=== PATIENT | male | born 1945 | race Caucasian/White ===

== ENCOUNTER → 2016-09-07 | Outpatient (CLI) | payer MEDICARE, OTHER ==
[2015-12-31 14:28] VITALS: BP 184/84
[~2016-09-07] MED LIST: ASPI-482 PO; ASPI325T4 PO; ASPI81TA2 PO; CALC600T4 PO; CARB1TAB44 PO; CITA20TA9 PO; CITA40TA5 PO; CLOP75TA27 PO; FEXO60TA25 PO; GABA-586 PO; GABA600T2 PO; GADOBUTROL 7.5 MMOL/7.5 ML VIAL IV ONE; HALO5TAB PO; HYDR-2762 PO; LEVO25TA4 PO; METO25TA9 PO; MULT-460 PO; NAPR220C4 PO; NITR0.4T6 SL; OMEP40CA5 PO; RANO500T2 PO; SIMV40TA3 PO; TAMS0.4C2 PO; VITA400C36 PO
--- NOTE | 2016-09-07 14:22 | RAD ---
PROCEDURE MRI cervical spine without and with contrast. HISTORY Increasing neck pain and right arm weakness for 3 weeks, previous neck fusion TECHNIQUE Multiplanar, multi sequential pre and post contrast MR imaging was performed of the cervical spine. Contrast: 7.5 cc Gadavist COMPARISON February 09, 2016 FINDINGS There is some motion degradation. There again has been anterior cervical fusion at C3, C4, C5. Exam does not accurately evaluate integrity of hardware. Cervical cord caliber is within normal limits without significant focal signal abnormality or enhancement. There is no significant marrow edema. Cervical vertebral body stature and AP alignment are preserved. There is no significant abnormality of the cervical medullary junction. There is mild cervical levoscoliosis. C2-C3: Spinal canal is adequate. There is again shallow posterior central protrusion. Neural foramina remain adequate. C3-C4: There is again facet hypertrophic change. Central canal is again minimally narrowed to 9-10 millimeters. Neural foramina are not significantly narrowed. C4-C5: Spinal canal is adequate. There are uncovertebral osteophytes. There is mild facet hypertrophic change. Neural foramina are not significantly narrowed. C5-C6: There is again negligible bulge. There is buckling of the ligamentum flavum. Central canal is borderline 10 millimeters. There is facet degenerative change. There is likely mild narrowing of the right neural foramen as seen previously. C6-7: There is again buckling of the ligamentum flavum and minimal posterior bulge. Central canal is borderline 10 millimeters. Neural foramina are not significantly narrowed. C7-T1: Spinal canal and neural foramina remain adequate. IMPRESSION Findings are similar comparing with the February 2016 exam. There again has been anterior cervical fusion C3, C4, C5. There is no new significant cervical spinal stenosis or neural foramina compromise, similar mild spinal stenosis C3-4. Electronically signed by: Andrea Rollins MD (Sep 07, 2016 14:20:43)
== END | disposition home or self-care (01) ==
LOC: MRI 12:08
PROVIDERS: ATTEND Family Medicine
DX: M50.90 Cervical disc disorder, unspecified, unspecified cervical region (principal)
CPT/HCPCS: 72156; A9585

== ENCOUNTER → 2016-09-29 | Outpatient (CLI) | payer MEDICARE, OTHER ==
[2015-12-31 14:28] VITALS: BP 184/84
[~2016-09-29] MED LIST changes: -GADOBUTROL 7.5 MMOL/7.5 ML VIAL IV ONE; +IOHEXOL 180 MG/ML 10 ML VIAL. ONE; +RANO10002 PO; +methylPREDNISolone ACETATE 40 MG/ML VIAL. ONE; +methylPREDNISolone ACETATE 80 MG/ML VIAL. ONE
--- NOTE | 2016-09-29 12:07 | PAIN ---
DATE OF SERVICE: 09/29/2016 DIAGNOSES: 1. Cervical radiculopathy with cervical stenosis and post-cervical laminectomy syndrome. 2. Lumbar radiculopathy with post-lumbar laminectomy syndrome. HISTORY OF PRESENT ILLNESS: The patient is a 71-year-old male who returns for followup, last seen in 07/2015. The patient had undergone surgery in 08/2015, cervical anterior diskectomy and fusion. The patient did well after this, but still has some pain in the base of the neck and into the right shoulder and upper extremity. The patient reports it is worse with activity using his upper extremities, his right arm, also into the anterior chest as well on the right side. Aches and hurts with rotational motion of the shoulder and neck. It is 5-7 on a scale of 10, is a constant aching pain, probably some weakness sensation in his right arm. The patient did have MRI scan showing multilevel degenerative disk disease throughout the cervical spine with severe right neural foraminal stenosis at C3-C4, moderate bilateral neural foraminal stenosis at C4-C5 with other less severe degenerative changes in C5-C6 and C6-C7 levels. The patient reports no symptoms on the left arm, but significant pain in the right, it has been awakening her from sleep at night and has difficulty getting dressed raising his arm up over his head on the right side, but without dropping any items or overt loss of function in the right upper extremity. PAST MEDICAL HISTORY: Significant for hyperlipidemia, coronary artery disease, depression, anxiety. PREVIOUS SURGERY: Include hernia repair, lumbar surgery in 1990, cholecystectomy, right hip replacement, cardiac stent placement and anterior cervical diskectomy in 08/2015. CURRENT MEDICATIONS: Include gabapentin, omeprazole, multivitamin, Celexa, carbidopa, metoprolol, daily baby aspirin, vitamin E, simvastatin, tamsulosin, hydrocodone and levothyroxine. ALLERGIES: THE PATIENT HAS NO KNOWN DRUG ALLERGIES. FAMILY HISTORY: Significant for hypertension. SOCIAL HISTORY: The patient is retired. He is and lives with his spouse, does not smoke, quit drinking in 1990. REVIEW OF SYSTEMS: The patient's review of systems is positive for those items mentioned in history of present illness. All systems reviewed and otherwise negative. It is complete, full and well documented on the patient's chart. PHYSICAL EXAMINATION: VITAL SIGNS: The patient's blood pressure is 115/44, pulse 58, respirations are 18, temperature 98.4 degrees Fahrenheit. Height is 5 feet 6 inches, weight is 168 pounds. GENERAL: The patient is awake, alert, oriented, appropriate, very pleasant demeanor. HEENT: Head shows normocephalic, atraumatic. Extraocular movements are intact, symmetrical. Oral cavity, mucous membranes are moist and pink. Dentition is intact. NECK: Shows anterior throat supple without palpable lymphadenopathy noted. Swallow reflex is symmetrical. CHEST: Shows normal on inspection. Breath sounds are clear to auscultation bilaterally. HEART: Shows S1 and S2 clear. No murmurs auscultated. ABDOMEN: Soft, nontender, nondistended. No palpable organomegaly. No rebound or guarding demonstrated. BACK: Shows spine grossly midline. Cervical paraspinous musculature shows some [id number]-[id number] tenderness in the inferior aspect of the cervical paraspinous muscles, more on the right than the left, but present bilaterally, but is symmetrical without evidence of atrophy, hypertrophy, no trigger points, and no radiation of pain. The patient shows good rotational motion with some minor pain reported with extension only, but not with forward flexion, right and left. Lateral rotation which is performed fully past 45 degrees, closer to 90 degrees, right and left. Upper extremities show deep tendon reflexes at 2+ in the biceps and triceps tendons. 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 Shoulder shrug is strong and intact without loss of strength and resistance bilaterally as is abduction of shoulder is 90 degrees without loss of strength or resistance. Peripheral pulses are 2+ in radial distribution. No peripheral edema is noted. Upper extremities are warm and dry to touch, equal in color and appearance. Options were discussed with the patient and the patient's old chart was reviewed as his current medication regimen and updated and current review of systems updated as noted. We will plan on a cervical epidural steroid injection today with fluoroscopic guidance. Risks were again discussed including, but not limited to bleeding, infection, possibility of epidural hematoma, subsequent neurologic compromise, dural puncture, headaches, spinal cord and/or nerve damage, side effects of steroid medication and poor results regarding pain control. The patient understands and wishes to proceed. The patient will return to clinic in approximately 2 weeks for followup, was counseled on return appointment, activity level and side effects to be aware of. DIAGNOSES: Cervical radiculopathy with cervical post-laminectomy syndrome and cervical spinal stenosis. PROCEDURE: Cervical epidural steroid injection in translaminar approach at the C6-C7 level, using C-arm fluoroscopic guidance under sterile prep and drape using local anesthetic. Medication injected is 120 mg Depo-Medrol plus 5 mL preservative-free normal saline and 2 mL of Isovue contrast. CONDITION ON DISCHARGE: Stable. The patient tolerated procedure well, had no complications. FLIP ANDERSON MD DR: PASHA/darius JOB#: [id number] / [id number]
== END | disposition home or self-care (01) ==
LOC: PNCL 08:00
PROVIDERS: ATTEND Anesthesiology
DX: M48.02 Spinal stenosis, cervical region (principal); M96.1 Postlaminectomy syndrome, not elsewhere classified; M54.12 Radiculopathy, cervical region; E78.5 Hyperlipidemia, unspecified; F41.9 Anxiety disorder, unspecified; F32.9 Major depressive disorder, single episode, unspecified; I25.10 Atherosclerotic heart disease of native coronary artery without angina pectoris; Z90.49 Acquired absence of other specified parts of digestive tract; Z96.641 Presence of right artificial hip joint
CPT/HCPCS: 62321; J1030; J1040; 62323

== ENCOUNTER → 2016-10-21 | Outpatient (CLI) | payer MEDICARE, OTHER ==
[2015-12-31 14:28] VITALS: BP 184/84
--- NOTE | 2016-10-22 06:32 | PAIN ---
DATE OF SERVICE: 10/21/2016 PROGRESS NOTE FOR PAIN CLINIC DIAGNOSES: 1. Cervical radiculopathy with cervical spinal stenosis and cervical post-laminectomy syndrome. 2. Lumbar radiculopathy with post-lumbar laminectomy syndrome. HISTORY OF PRESENT ILLNESS: The patient is a 71-year-old male who returns for followup status post cervical epidural steroid injection x 1 on 09/29/2016. The patient reports he did very well with this. Initially, about 50% improvement, now about 30% and the pain is beginning to return. The patient reports still in the base of the neck and shoulders, worse on the right than the left, also causes some headache as a constant aching pain and it is tight, dull at times, rated up to 5 on a scale of 10 when it worse and it is currently at 2 on a scale of 10 today. The patient reports no new motor or sensory deficits, no new visual disturbances or other changes with these headaches and reports otherwise, doing well. There is still significant pain in the base of the neck, shoulders, right greater than left as noted. PHYSICAL EXAMINATION: VITAL SIGNS: Today, the patient's blood pressure is 107/66, pulse ____, respirations 18, temperature is ____ degrees Fahrenheit, height is 5 feet 6 inches, and weight is 169 pounds. GENERAL: The patient is awake, alert, oriented, appropriate, very pleasant demeanor. HEENT: Head shows normocephalic, atraumatic. Extraocular movements are intact, symmetrical. Oral cavity, mucous membranes are moist and pink. Dentition is intact. NECK: Shows anterior throat is supple without palpable lymphadenopathy noted. Swallow reflex is symmetrical. CHEST: Shows normal on inspection. Breath sounds are clear to auscultation bilaterally. HEART: Shows S1 and S2 clear. ABDOMEN: Soft, nontender, nondistended. No palpable organomegaly is noted. BACK: Shows spine grossly in the midline. Cervical paraspinous musculature shows some moderate tenderness with palpation bilaterally in the middle and lower distribution of the cervical paraspinous musculature, but only diffusely without radiation or trigger points. The patient shows some limited extension of cervical spine, but good forward flexion, right and left lateral rotation is guarded and slow but past 45 degrees, right and left lateral. EXTREMITIES: The patient's upper extremities show deep tendon reflexes 2+ in the biceps, triceps tendons. 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 PLAN: Options were discussed with the patient and the patient's old chart was reviewed and his current medication regimen updated. Current review of systems updated today as well. We will proceed with a second cervical epidural steroid injection today with fluoroscopic guidance. Risks were again discussed including, but not limited to bleeding, infection, possibility of epidural hematoma, subsequent neurological compromise, dural puncture, headaches, spinal cord and/or nerve damage, side effects of steroid medication and poor results regarding pain control. The patient understands and wishes to proceed. The patient will return to the clinic in approximately 2 weeks for followup. He was counseled to return appointment, activity level and side effects to be aware of. DIAGNOSES: Cervical radiculopathy with cervical spinal stenosis and post-cervical laminectomy syndrome. PROCEDURE: Cervical epidural steroid injection using C-arm fluoroscopic guidance under sterile prep and drape using local anesthetic at the C6-C7 level in translaminar approach. MEDICATIONS INJECTED: A 120 mg of Depo-Medrol plus 5 mL of preservative-free normal saline and 2 mL of Isovue for contrast. CONDITION AT DISCHARGE: Stable. The patient tolerated procedure well, had no complications. FLIP ANDERSON MD DR: PASHA/darius JOB#: [id number] / [id number]
== END | disposition home or self-care (01) ==
LOC: PNCL 11:14
PROVIDERS: ATTEND Anesthesiology
DX: M48.02 Spinal stenosis, cervical region (principal); M96.1 Postlaminectomy syndrome, not elsewhere classified; M54.12 Radiculopathy, cervical region; E78.00 Pure hypercholesterolemia, unspecified; J44.9 Chronic obstructive pulmonary disease, unspecified; F32.9 Major depressive disorder, single episode, unspecified; E05.90 Thyrotoxicosis, unspecified without thyrotoxic crisis or storm; Z90.49 Acquired absence of other specified parts of digestive tract; Z96.641 Presence of right artificial hip joint; Z72.0 Tobacco use; Z87.891 Personal history of nicotine dependence
CPT/HCPCS: 62321; J1030; J1040

== ENCOUNTER → 2016-11-07 | Outpatient (CLI) | payer MEDICARE, OTHER ==
[2015-12-31 14:28] VITALS: BP 184/84
--- NOTE | 2016-11-07 19:36 | PAIN ---
DATE OF SERVICE: 11/07/2016 PROGRESS NOTE FOR PAIN CLINIC DIAGNOSES: 1. Cervical radiculopathy with cervical spinal stenosis and post-cervical laminectomy syndrome. 2. Lumbar radiculopathy with post-lumbar laminectomy syndrome. HISTORY OF PRESENT ILLNESS: The patient is a 71-year-old male, who returns for followup status post cervical epidural steroid injections x 2, last seen 10/21/2016. The patient did very well and reports near 100% improvement after the last injection. The pain in the base of the neck and shoulders, was feeling much better, increase his activity with greater ease and comfort and sleeping better at night. No difficulty with the pain with sleeping. The patient reports it is worst as a 4 on a scale of 10, describes as dull achy, occasionally constant, but much better after the last injection. The patient reports no new motor or sensory deficits, no new bowel or bladder incontinence or other complaints. PHYSICAL EXAMINATION: VITAL SIGNS: The patient's blood pressure 109/72, pulse 63, respirations are 16, temperature 98.0 degrees Fahrenheit. Height is 5 feet 6 inches, weight is 165 pounds. GENERAL: The patient is awake, alert, oriented, appropriate, very pleasant demeanor. HEENT: Head shows normocephalic, atraumatic. Extraocular movements are intact and symmetrical. Oral cavity shows mucous membranes are moist and pink. Dentition is intact. NECK: Shows anterior throat supple without palpable lymphadenopathy noted. Swallow reflex is symmetrical. CHEST: Shows normal on inspection. Breath sounds clear to auscultation bilaterally. HEART: Shows S1 and S2 clear. ABDOMEN: Soft, nontender, nondistended. No palpable organomegaly. No rebound or guarding demonstrated. BACK: Shows spine grossly midline. Well-healed surgical scar is noted in the lumbar distribution. Cervical lordotic curvature is mildly flattened had on previous exam with palpation shows some moderate tenderness with palpation bilaterally in the cervical paraspinous musculature, mainly in the middle and lower distribution, also superior medial and lateral trapezius some extent, but without radiation. The patient shows good rotational motion, mildly limited secondary to limitation of motion, but not secondary to pain with extension, also with right and left lateral rotation, but patient ____ 45 degrees bilaterally. EXTREMITIES: The patient's upper extremities show deep tendon reflexes 2+ in the biceps and triceps tendons. 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 Options were discussed with the patient. The patient's old chart was reviewed as his current medication regimen updated. Current review of systems updated today as well. We will proceed with a third cervical epidural steroid injection today with fluoroscopic guidance. Risks were again discussed including, but not limited to bleeding, infection, possibility of epidural hematoma, subsequent neurologic compromise, dural puncture, headaches, spinal cord and/or nerve damage, side effects of steroid medication and poor results regarding pain control. The patient understands and wishes to proceed. The patient will return to clinic in approximately 2 weeks for followup, was counseled on return appointment, activity level and side effects to be aware of. DIAGNOSES: Cervical radiculopathy with cervical spinal stenosis, cervical post-laminectomy syndrome. PROCEDURE: Cervical epidural steroid injection in translaminar approach to the C6-C7 level using C-arm fluoroscopic guidance under sterile prep and drape using local anesthetic. MEDICATIONS INJECTED: Depo-Medrol 120 mg plus 5 mL of preservative-free normal saline and 2 mL of Isovue for contrast. CONDITION AT DISCHARGE: Stable. The patient tolerated procedure well, had no complications. FLIP ANDERSON MD DR: PASHA/darius JOB#: [id number] / [id number]
== END | disposition home or self-care (01) ==
LOC: PNCL 08:54
PROVIDERS: ATTEND Anesthesiology
DX: M48.02 Spinal stenosis, cervical region (principal); M54.12 Radiculopathy, cervical region; M96.1 Postlaminectomy syndrome, not elsewhere classified; E78.00 Pure hypercholesterolemia, unspecified; I25.10 Atherosclerotic heart disease of native coronary artery without angina pectoris; J44.9 Chronic obstructive pulmonary disease, unspecified; F32.9 Major depressive disorder, single episode, unspecified; K21.9 Gastro-esophageal reflux disease without esophagitis; Z72.89 Other problems related to lifestyle; Z72.0 Tobacco use; Z96.641 Presence of right artificial hip joint
CPT/HCPCS: 62321; J1030; J1040

== ENCOUNTER → 2017-01-18 | Outpatient (CLI) | payer MEDICARE, OTHER ==
[2015-12-31 14:28] VITALS: BP 184/84
[~2017-01-18] MED LIST changes: +ASPI-630 PO; -ASPI325T4 PO; +ASPI325T8 PO; -ASPI81TA2 PO; -CLOP75TA27 PO; +CLOP75TA57 PO; -IOHEXOL 180 MG/ML 10 ML VIAL. ONE; +NITR0.4T22 SL; -NITR0.4T6 SL; -methylPREDNISolone ACETATE 40 MG/ML VIAL. ONE; -methylPREDNISolone ACETATE 80 MG/ML VIAL. ONE
--- NOTE | 2017-01-25 17:39 | RAD ---
APPROVED REPORT Patient Location: OUT-PATIENT Laterality:Bilateral Indications pvd Doppler Spectral Velocity Analysis Right Left pCCA 69/15 cm/spCCA 98/23 cm/s mCCA 93/19 cm/smCCA 114/31 cm/s dCCA 71/18 cm/sdCCA 121/29 cm/s Bulb 32/19 cm/sBulb 41/ cm/s ECA 75/ cm/sECA 125/ cm/s pICA 54/17 cm/spICA 69/19 cm/s Colleen 70/26 cm/smICA 99/27 cm/s dICA 69/28 cm/sdICA 79/26 cm/s Vert. 56/ cm/sVert. 41/ cm/s Subcl. 210/ cm/sSubcl. 100/ cm/s ICA/CCA 0.75ICA/CCA 1.01 Findings The bilateral carotid arterial systems were assess for stenosis. On the right there is mild intimal hyperplasia with mild plaque burden noted throughout the arterial tree. The specrtral waveforms and color doppler assessment is consistent with less than 50% stenosis. The vertebral velocities are antegrade. The subclavian velocity is suggestive of > 50% stenosis. On the left there is mild intimal hyperplasia with mild plaque burden noted throughout the arterial t ree. The specrtral waveforms and color doppler assessment is consistent with less than 50% stenosis. The vertebral velocities are antegrade. The subclavian velocity is within normal limits. Critical Notification Critical Value: No <Conclusion> 1. No high grade stenosis in the bilateral carotid arterial systems. 2. 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
== END | disposition home or self-care (01) ==
LOC: US 09:57
PROVIDERS: ATTEND Internal Medicine Cardiovascular Disease
DX: I73.9 Peripheral vascular disease, unspecified (principal); I65.21 Occlusion and stenosis of right carotid artery
CPT/HCPCS: 93880

== ENCOUNTER → 2017-03-15 | Outpatient (CLI) | payer MEDICARE, OTHER ==
[2015-12-31 14:28] VITALS: BP 184/84
[~2017-03-15] MED LIST changes: +DOCU-109 PO; +METH5TAB2 PO; +METH750T2 PO; +METO-239 PO; -METO25TA9 PO; +NITR0.3T5 SL; +OXYC1TAB7 PO
[2017-03-15 14:27] LABS: BASO # 0.1 x10^3/uL (0.0-0.2); BASO % 1 % (0-3); EOS % 5 % (0-3); HEMATOCRIT 43.2 % (39.0-53.0); HEMOGLOBIN 14.5 g/dL (13.0-17.5); LYMPH # 1.2 x10^3/uL (1.0-4.8); LYMPH % 19 % (24-48); MEAN CORPUSCULAR HEMOGLOBIN 32 pg (25-35); MEAN CORPUSCULAR HGB CONC 34 g/dL (31-37); MEAN CORPUSCULAR VOLUME 94 fL (79-100); MONO % 12 % (0-9); NEUT % 63 % (31-73); PLATELET COUNT 162 x10^3/uL (140-400); RED BLOOD COUNT 4.58 x10^6/uL (4.30-5.70); RED CELL DISTRIBUTION WIDTH 12.9 % (11.5-14.5); WHITE BLOOD COUNT 6.6 x10^3/uL (4.0-11.0)
[2017-03-15 14:40] LABS: ALBUMIN 3.5 g/dL (3.4-5.0); ALBUMIN/GLOBULIN RATIO 1.2 (1.0-1.7); CALCIUM 8.5 mg/dL (8.5-10.1); CREATININE 0.9 mg/dL (0.7-1.3); GFR 82.7; POTASSIUM 3.9 mmol/L (3.5-5.1); TOTAL BILIRUBIN 0.3 mg/dL (0.2-1.0); TOTAL PROTEIN 6.5 g/dL (6.4-8.2)
== END | disposition home or self-care (01) ==
LOC: SURGPAT 13:16
PROVIDERS: ATTEND Neurological Surgery
DX: M54.12 Radiculopathy, cervical region (principal)
CPT/HCPCS: 36415; 80053; 85025; 85610; 85730; 87641

== ENCOUNTER → 2017-07-07 | Outpatient (CLI) | payer MEDICARE, OTHER | END | disposition home or self-care (01) | LOC: RAD 09:08 | DX: M43.22 Fusion of spine, cervical region (principal); Z98.890 Other specified postprocedural states | CPT/HCPCS: 72040 ==

== ENCOUNTER → 2017-08-03 | Outpatient (CLI) | payer MEDICARE, OTHER | END | disposition home or self-care (01) | LOC: KCIC MRI 12:45 | DX: M75.102 Unspecified rotator cuff tear or rupture of left shoulder, not specified as traumatic (principal) | CPT/HCPCS: 73221 ==

== ENCOUNTER 2017-11-27 06:13 | Outpatient (CLI) | payer MEDICARE, OTHER ==
[2017-11-27 07:07] LABS: HEMATOCRIT 44.4 % (39.0-53.0); HEMOGLOBIN 15.4 g/dL (13.0-17.5); MEAN CORPUSCULAR HEMOGLOBIN 32 pg (25-35); MEAN CORPUSCULAR HGB CONC 35 g/dL (31-37); MEAN CORPUSCULAR VOLUME 92 fL (79-100); PLATELET COUNT 186 x10^3/uL (140-400); RED BLOOD COUNT 4.85 x10^6/uL (4.30-5.70); RED CELL DISTRIBUTION WIDTH 13.4 % (11.5-14.5)
[2017-11-27 07:12] LABS: ANION GAP 8 (6-14); BLOOD UREA NITROGEN 16 mg/dL (8-26); CALCIUM 8.8 mg/dL (8.5-10.1); CARBON DIOXIDE 28 mmol/L (21-32); CHLORIDE 105 mmol/L (98-107); CREATININE 0.9 mg/dL (0.7-1.3); GFR 82.7; GLUCOSE 93 mg/dL (70-99); POTASSIUM 3.9 mmol/L (3.5-5.1); SODIUM 141 mmol/L (136-145)
[2017-11-27 07:37] LABS: PROTHROMBIN TIME PATIENT 12.3 SEC (11.7-14.0)
[2017-11-27 07:39] LABS: PARTIAL THROMBOPLASTIN TIME 28 SEC (24-38)
[2017-11-27] MEDS ORDERED: LIDOCAINE 2%/EPI 1:100,000 20 ML VIAL. (07:43)
[2017-11-27] MEDS: LIDOCAINE 2%/EPI 1:100,000 20 ML VIAL. IJ (08:30)
== END 2017-11-27 09:15 | disposition home or self-care (01) ==
LOC: CCL 06:13
DX: R55 Syncope and collapse (principal); M48.02 Spinal stenosis, cervical region; M54.12 Radiculopathy, cervical region; Z86.73 Personal history of transient ischemic attack (TIA), and cerebral infarction without residual deficits; F03.90 Unspecified dementia, unspecified severity, without behavioral disturbance, psychotic disturbance, mood disturbance, and anxiety; G20 Parkinson's disease; I25.10 Atherosclerotic heart disease of native coronary artery without angina pectoris; E03.9 Hypothyroidism, unspecified; E78.00 Pure hypercholesterolemia, unspecified; J44.9 Chronic obstructive pulmonary disease, unspecified; G47.33 Obstructive sleep apnea (adult) (pediatric); K21.9 Gastro-esophageal reflux disease without esophagitis; N40.0 Benign prostatic hyperplasia without lower urinary tract symptoms; I36.1 Nonrheumatic tricuspid (valve) insufficiency; Z95.5 Presence of coronary angioplasty implant and graft; Z98.890 Other specified postprocedural states; Z90.49 Acquired absence of other specified parts of digestive tract; Z96.641 Presence of right artificial hip joint; M16.11 Unilateral primary osteoarthritis, right hip; Z72.89 Other problems related to lifestyle; Z87.891 Personal history of nicotine dependence; Z82.49 Family history of ischemic heart disease and other diseases of the circulatory system
CPT/HCPCS: 33282; 36415; 80048; 85027; 85610; 85730; 93306; C1764; J3490

== ENCOUNTER → 2018-02-12 | Outpatient (CLI) | payer MEDICARE, OTHER ==
[2018-02-12 09:09] LABS: CHOLESTEROL 175 mg/dL (0-200); HDLC 46 mg/dL (40-60); LDLC 97 mg/dL (0-100); NON-HDL CHOLESTEROL 129 mg/dL (0-129); TRIGLYCERIDES 161 mg/dL (0-150); VLDLC 32 mg/dL (0-40)
[2018-02-12 09:24] LABS: CHOLESTEROL/HDL RATIO 3.8
[2018-02-12] MEDS: REGADENOSON 0.4 MG/5 ML DISP.SYRIN. IV (10:25)
== END | disposition home or self-care (01) ==
LOC: NM 08:13
DX: I25.10 Atherosclerotic heart disease of native coronary artery without angina pectoris (principal); I25.2 Old myocardial infarction; I10 Essential (primary) hypertension; E78.5 Hyperlipidemia, unspecified; E78.00 Pure hypercholesterolemia, unspecified; M16.11 Unilateral primary osteoarthritis, right hip; F32.9 Major depressive disorder, single episode, unspecified; E03.9 Hypothyroidism, unspecified; J44.9 Chronic obstructive pulmonary disease, unspecified; E87.6 Hypokalemia; K21.9 Gastro-esophageal reflux disease without esophagitis; Z95.5 Presence of coronary angioplasty implant and graft; Z90.49 Acquired absence of other specified parts of digestive tract; Z82.49 Family history of ischemic heart disease and other diseases of the circulatory system
CPT/HCPCS: 36415; 78452; 80061; 93017; 96374; 96375; 96376; A9500; J2785

== ENCOUNTER → 2018-08-13 | Outpatient (CLI) | payer MEDICARE, OTHER ==
[2017-11-27 08:55] VITALS: BP 152/67
[~2018-08-13] MED LIST changes: +ALBU2.5V8 INH; +CHOL10003 PO; +DULO60CA6 PO; -GABA-586 PO; +GABA300C18 PO; -GABA600T2 PO; +GABA600T7 PO; -HYDR-2762 PO; +HYDR-2765 PO; +LEVO75TA PO; +MECL12.52 PO
--- NOTE | 2018-08-13 11:16 | RAD ---
Chest, PA and Lateral: Technique: PA and lateral views of the chest were obtained. History: Medical workup. Comparison: 11/03/2017. Findings: The heart and pulmonary vasculature appear within normal limits. The lungs are clear.. The pleural margins are clear. Heart monitor device projects in the left chest wall region. Impression: No acute chest process is seen. Electronically signed by: Dedrick Sullivan MD (08/13/2018 11:11 AM) [facility]
== END | disposition home or self-care (01) ==
LOC: RAD 09:24
PROVIDERS: ATTEND Internal Medicine Pulmonary Disease
DX: R05 Cough (principal)
CPT/HCPCS: 71046

== ENCOUNTER → 2018-08-15 | Outpatient (CLI) | payer MEDICARE, OTHER ==
[2017-11-27 08:55] VITALS: BP 152/67
--- NOTE | 2018-08-15 13:16 | KCIC ---
MR of the right shoulder HISTORY: Right shoulder pain chronically. Decreased range of motion. TECHNIQUE: Routine multiplanar sequences are obtained. FINDINGS: The acromioclavicular joint is mildly degenerative. Full-thickness tear of the anterior supraspinatus tendon measures 1 cm AP diameter. Retraction measures 2 cm of the undersurface fibers. There is generalized tendinosis. Undersurface tearing through the more posterior tendon. Partial tearing of the subscapularis tendon. Wnod-os-phlnejdo muscle atrophy. Mild fluid enters subdeltoid bursa. No acute articular cartilage defect. There is limited labral evaluation due to some motion degradation but there is evidence of a tear of the posterosuperior labrum. Biceps tendinosis. No bone lesion or acute fracture. No aggressive bone destruction. No acute soft tissue abnormality. IMPRESSION: 1. Full-thickness rotator cuff tear of the anterior supraspinatus tendon, with more generalized partial rotator cuff tearing. 2. Biceps tendinosis. 3. Small posterosuperior labral tear. Electronically signed by: Manoj Ibrahim MD (08/15/2018 1:11 PM) [facility]
== END | disposition home or self-care (01) ==
LOC: KCIC MRI 11:19
PROVIDERS: ATTEND Orthopaedic Surgery
DX: M75.101 Unspecified rotator cuff tear or rupture of right shoulder, not specified as traumatic (principal); M62.511 Muscle wasting and atrophy, not elsewhere classified, right shoulder; Z87.891 Personal history of nicotine dependence
CPT/HCPCS: 73221

== ENCOUNTER → 2018-08-24 | Outpatient (CLI) | payer MEDICARE, OTHER ==
[2017-11-27 08:55] VITALS: BP 152/67
--- NOTE | 2018-08-24 09:40 | KCIC ---
PQRS Compliance statement: One or more of the following individualized dose reduction techniques were utilized for this examination: 1. Automated exposure control. 2. Adjustment of the mA and/or kV according to patient size. 3. Use of iterative reconstruction technique. Indication:Cough, shortness of breath, intermittent wheezing. TECHNIQUE: CT chest none IV contrast with multiplanar reformats. COMPARISON:None FINDINGS: Heart is normal in size. No pericardial or pleural effusion. Coronary artery calcifications. Diffuse atherosclerotic disease of the thoracic aorta and upper abdominal aorta. No enlarged axillary or mediastinal adenopathy. Evaluation of hilar lymphadenopathy is limited due to lack of IV contrast. Most likely dependent pacemaker in the left chest wall. Central airways are patent. No emphysema. Focal calcified pleural plaque in the posterior left lower lobe. Noncontrast appearance of the visualized liver, spleen, adrenals, pancreas within normal limits. Simple cyst is seen in the left kidney measuring 10.0 x 8.0 cm. Status post cholecystectomy. No suspicious bony lesion. IMPRESSION: 1. No acute pulmonary findings. No emphysema. Electronically signed by: Maxim Obando DO (08/24/2018 9:37 AM) [id number]
== END | disposition home or self-care (01) ==
LOC: KCIC CT 08:58
PROVIDERS: ATTEND Internal Medicine Pulmonary Disease
DX: I25.10 Atherosclerotic heart disease of native coronary artery without angina pectoris (principal); J44.9 Chronic obstructive pulmonary disease, unspecified; I70.0 Atherosclerosis of aorta; N28.1 Cyst of kidney, acquired; I11.9 Hypertensive heart disease without heart failure; Z87.891 Personal history of nicotine dependence; Z90.49 Acquired absence of other specified parts of digestive tract
CPT/HCPCS: 71250

== ENCOUNTER → 2019-01-01 | Outpatient (CLI) | payer MEDICARE, OTHER ==
[2017-11-27 08:55] VITALS: BP 152/67
--- NOTE | 2019-01-01 12:04 | RAD ---
MRI of the cervical spine without contrast 01/01/2019 CLINICAL HISTORY: Neck pain with right arm weakness. TECHNIQUE: Unenhanced T1-weighted, T2-weighted and inversion recovery sagittal and gradient echo and T2-weighted axial images of the cervical spine were obtained. FINDINGS: Mild lateral curvature of the cervical spine is seen convex to the left. There is straightening of the normal cervical lordosis. The patient is post anterior fusion using what appears to be an anterior plate, bone screws and bone graft material at C3-4 and C4-5. Degenerative signal changes are seen involving the remaining discs of the cervical spine. Degenerative signal changes are seen within the marrow surrounding these discs. No area of abnormal signal intensity is seen involving the cervical spinal cord. At the C2-3 disc space there is a mild generalized disc bulge. Superimposed on this disc bulge is a focal central disc protrusion. This measures 3 mm in AP diameter. Degenerative changes are seen involving the uncovertebral and facet joints bilaterally. These findings efface the anterior and posterior CSF without resulting in significant central spinal canal or neural foraminal stenosis. At the C3-4 level degenerative changes are seen involving the uncovertebral and facet joints, right greater than left. These findings do not result in significant central spinal canal or neural foraminal stenosis. At the C4-5 level degenerative changes are seen involving the uncovertebral and facet joints, right greater than left. These findings do not result in significant central spinal canal stenosis. Mild right neural foraminal stenosis is seen. The left neural foramen is patent. At the C5-6 disc space there is a mild generalized disc bulge. Degenerative changes are seen involving the uncovertebral and facet joints, right greater than left. These findings do not result in significant central spinal canal stenosis. Mild right neural foraminal stenosis is seen. The left neural foramen is patent. At the C6-7 disc space there is a mild generalized disc bulge. Degenerative changes are seen involving the uncovertebral and facet joints bilaterally. These findings efface the anterior and posterior CSF resulting in mild central spinal canal stenosis without evidence of cord impingement. Mild bilateral neural foraminal stenosis is seen. At the C7-T1 disc space there is a mild generalized disc bulge. Degenerative changes are seen involving the facet joints bilaterally. These findings do not result in significant central spinal canal or neural foraminal stenosis. IMPRESSION: 1. Post anterior fusion at C3-4 and C4-5. 2. Degenerative changes are seen throughout the cervical spine. These findings result in mild central spinal canal stenosis without evidence of cord impingement at C6-7. Mild right neural foraminal stenosis is seen at C4-5 and C5-6. Mild bilateral neural foraminal stenosis is seen at C6-7. Electronically signed by: Pepito Camp MD (01/01/2019 12:01 PM) [id number]
== END | disposition home or self-care (01) ==
LOC: MRI 08:56
PROVIDERS: ATTEND Family Medicine
DX: M47.813 Spondylosis without myelopathy or radiculopathy, cervicothoracic region (principal); M48.02 Spinal stenosis, cervical region; M43.8X2 Other specified deforming dorsopathies, cervical region; M50.23 Other cervical disc displacement, cervicothoracic region; Z98.1 Arthrodesis status
CPT/HCPCS: 72141

== ENCOUNTER → 2019-02-13 | Outpatient (CLI) | payer MEDICARE, OTHER ==
[2017-11-27 08:55] VITALS: BP 152/67
--- NOTE | 2019-02-13 11:16 | RAD ---
MR#: [id number] Date of Study: 02/13/2019 Ordering Physician: BENNETT PUGH, Referring Physician: BENNETT PUGH, Tech: Fallon Spring, RDMS, RVT, RTR APPROVED REPORT Patient Location: OUT-PATIENT Laterality:Bilateral Risk Factors Hypertension: PVD; Right Leg numbness; RT endarterectomy 2011 Doppler Spectral Velocity Analysis Right Left pCCA 87/15 cm/spCCA 133/23 cm/s mCCA 87/16 cm/smCCA 140/30 cm/s dCCA 88/18 cm/sdCCA 117/17 cm/s Bulb 41/7 cm/sBulb 65/17 cm/s ECA 91/10 cm/sECA 158/19 cm/s pICA 33/10 cm/spICA 43/12 cm/s Colleen 76/23 cm/smICA 97/27 cm/s dICA 64/20 cm/sdICA 64/21 cm/s Vert. 34/8 cm/sVert. 39/10 cm/s ICA/CCA 0.86ICA/CCA 0.73 Findings Grayscale images of the bilateral carotid arteries demonstrate mild to moderate diffuse plaque. On the right spectral waveforms are grossly within normal limits. No high-grade stenosis is identifie d. Vertebral velocities are diminished but antegrade. Normal ICA to CCA ratio is noted. On the left there is likely moderate disease involving the external carotid artery. Probable mild to moderate common carotid arterial disease. No high-grade internal carotid artery stenosis is identifie d. Critical Notification Critical Value: No <Conclusion> 1. Probable moderate left common carotid arterial disease. No significant internal carotid disease bi laterally 2. Normal antegrade vertebral velocities bilaterally. Signed by : Bennett Pugh, Electronically Approved : 02/13/2019 11:15:22
== END | disposition home or self-care (01) ==
LOC: US 09:41
PROVIDERS: ATTEND Internal Medicine Cardiovascular Disease
DX: I65.23 Occlusion and stenosis of bilateral carotid arteries (principal); I10 Essential (primary) hypertension; I25.10 Atherosclerotic heart disease of native coronary artery without angina pectoris; I73.9 Peripheral vascular disease, unspecified
CPT/HCPCS: 93880

== ENCOUNTER 2019-05-09 08:20 | Outpatient (CLI) | payer MEDICARE, OTHER ==
[~2019-05-09] VITALS: Ht 167.6 cm; Wt 77.1 kg
[~2019-05-09 08:20] MED LIST changes: +OMEP40CA45 PO; -OMEP40CA5 PO
[2019-05-09 08:56] VITALS: BP 119/74
[2019-05-09] MEDS ORDERED: VITA400C6 PO (09:08)
[2019-05-09] MEDS ORDERED: ASPI81TA50 PO (09:08)
[2019-05-09] MEDS ORDERED: LIDOCAINE 2%/EPI 1:100,000 20 ML VIAL. ONE (11:18)
[2019-05-09] MEDS ORDERED: LIDOCAINE 2%/EPI 1:100,000 20 ML VIAL. IJ ONE (11:45)
[2019-05-09 12:02] VITALS: BP 159/76
--- NOTE | 2019-05-09 12:11 | NUR ---
Discharge Note: [facility] Discharge instructions and discharge home medications reviewed with Patient and a copy given. All questions have been answered and understanding verbalized. The following instructions and handouts were given: surgical incision site care Discontinued lines and drains: no lines or drains to remove. Patient discharged to Home or Self Care with[facility] Called patient's to let her know that he was headed home and he has typed instructions regarding his surgical site care.
--- NOTE | 2019-05-09 17:24 | CARD ---
MR#: [id number] Date of Study: 05/09/2019 Ordering Physician: BENNETT PUGH, Referring Physician: BENNETT PUGH, Tech: APPROVED REPORT PROCEDURE: Loop recorder explant Indication: End of life. Details: After appropriate informed consent, the chest was prepped and draped in usual sterile fashion. 10ml of 2% Lidocaine was administered around the loop recorder site. Using a 11 blade scalpel and andrew nt dissection, the previous loop recorder was removed without difficulty. The incision was then closed with steristrips and sterile dressing. The patient tolerated the procedure well. <Conclusion> Succesful Biotronik loop recorder explantation. Signed by : Bennett Pugh, Electronically Approved : 05/09/2019 17:24:32
== END 2019-05-09 12:05 | disposition home or self-care (01) ==
LOC: CCL 08:20
PROVIDERS: ATTEND Internal Medicine Cardiovascular Disease
DX: Z45.09 Encounter for adjustment and management of other cardiac device (principal)
CPT/HCPCS: 33286; J3490; 33284

== ENCOUNTER → 2019-12-18 | Outpatient (CLI) | payer MEDICARE, OTHER ==
[~2019-12-18] MED LIST changes: +ASPI81TA50 PO; -LEVO75TA PO; +LEVO75TA90 PO; -MECL12.52 PO; +MECL12.573 PO; +SIMV40TA18 PO; -SIMV40TA3 PO; +VITA-8 PO; -VITA400C36 PO; +VITA400C6 PO
[2019-12-18 11:07] LABS: BASO # 0.1 x10^3/uL (0.0-0.2); BASO % 1 % (0-3); EOS # 0.2 x10^3/uL (0.0-0.7); EOS % 3 % (0-3); HEMATOCRIT 43.4 % (39.0-53.0); HEMOGLOBIN 14.8 g/dL (13.0-17.5); LYMPH # 1.6 x10^3/uL (1.0-4.8); LYMPH % 23 % (24-48); MEAN CORPUSCULAR HEMOGLOBIN 31 pg (25-35); MEAN CORPUSCULAR HGB CONC 34 g/dL (31-37); MEAN CORPUSCULAR VOLUME 91 fL (79-100); MONO # 0.8 x10^3/uL (0.0-1.1); MONO % 11 % (0-9); NEUT # 4.5 x10^3/uL (1.8-7.7); NEUT % 62 % (31-73); PLATELET COUNT 201 x10^3/uL (140-400); RED BLOOD COUNT 4.77 x10^6/uL (4.30-5.70); WHITE BLOOD COUNT 7.1 x10^3/uL (4.0-11.0)
[2019-12-18 11:21] LABS: ALBUMIN/GLOBULIN RATIO 1.3 (1.0-1.7); CALCIUM 8.6 mg/dL (8.5-10.1); CREATININE 1.2 mg/dL (0.7-1.3); POTASSIUM 4.7 mmol/L (3.5-5.1); TOTAL BILIRUBIN 0.3 mg/dL (0.2-1.0); TOTAL PROTEIN 7.2 g/dL (6.4-8.2)
== END | disposition home or self-care (01) ==
LOC: LAB 10:45
PROVIDERS: ATTEND Nurse Practitioner Family
DX: G62.9 Polyneuropathy, unspecified (principal); R26.81 Unsteadiness on feet; R26.89 Other abnormalities of gait and mobility; E05.90 Thyrotoxicosis, unspecified without thyrotoxic crisis or storm
CPT/HCPCS: 36415; 80053; 82607; 84443; 85025; 86140

== ENCOUNTER → 2019-12-25 | Outpatient (CLI) | payer MEDICARE, OTHER ==
--- NOTE | 2019-12-25 10:10 | RAD ---
EXAMINATION: Magnetic resonance imaging (MRI) of the brain and brainstem without contrast 12/25/2019 9:00 AM HISTORY: Diplopia, unsteady TECHNIQUE: Multiplanar multi-weighted MRI of the brain and brainstem was performed without intravenous contrast using the general brain protocol. COMPARISON: MRI brain 11/03/2017 FINDINGS: The scalp and calvarium are normal. The superior sagittal sinus demonstrates normal venous flow. The corpus callosum is normal in shape and signal intensity. Mild to moderate cerebellar volume loss. The pituitary and sella are normal. The brainstem and craniocervical junction are unremarkable. Few scattered foci of FLAIR/T2 signal hyperintensity in the subcortical white matter are within the range of age-related changes. Diffusion weighted images reveal no hyperintensities to suggest acute cerebral infarction. The susceptibility weighted sequences reveal no evidence of acute or chronic hemorrhage. Ventricles, sulci and basal cisterns are prominent compatible with mild to moderate generalized cerebral volume loss. No hydrocephalus. The paranasal sinuses are normal. The visualized portions of the mastoids are unremarkable. The orbits appear normal. Normal flow voids are demonstrated in the carotid arteries and basilar artery. Anterior cervical discectomy and fusion hardware is partially profiled at the C3-C4 vertebral level. IMPRESSION: 1. No evidence for acute or subacute ischemia. 2. Mild to moderate cerebellar and cerebral volume loss. Findings may be age-related. Electronically signed by: Laina Kwan MD (12/25/2019 10:07 AM) [facility]
== END | disposition home or self-care (01) ==
LOC: MRI 07:46
PROVIDERS: ATTEND Nurse Practitioner Family
DX: R26.89 Other abnormalities of gait and mobility (principal); R26.81 Unsteadiness on feet; H53.2 Diplopia; Z86.73 Personal history of transient ischemic attack (TIA), and cerebral infarction without residual deficits
CPT/HCPCS: 70551

== ENCOUNTER → 2020-05-21 | Outpatient (CLI) | payer MEDICARE, OTHER ==
[~2020-05-21] MED LIST changes: -CALC600T4 PO; +CALC600T6 PO; +LEVO75TA5 PO; +QUET25TA5 PO
== END ==
LOC: LAB 12:56
PROVIDERS: ATTEND Internal Medicine Cardiovascular Disease
DX: Z01.812 Encounter for preprocedural laboratory examination (principal); R06.00 Dyspnea, unspecified; Z20.828 Contact with and (suspected) exposure to other viral communicable diseases
CPT/HCPCS: U0003

== ENCOUNTER 2020-05-25 06:58 | Outpatient (CLI) | payer MEDICARE, OTHER ==
[~2020-05-25] VITALS: Ht 167.6 cm; Wt 77.1 kg
[2020-05-25] VITALS (14 sets, daily range): BP systolic 112–161; BP diastolic 51–88
[~2020-05-25 06:58] MED LIST changes: -LEVO75TA5 PO; -QUET25TA5 PO
[2020-05-25 07:32] LABS: HEMOGLOBIN 15.3 g/dL (13.0-17.5); RED BLOOD COUNT 4.81 x10^6/uL (4.30-5.70); RED CELL DISTRIBUTION WIDTH 13.1 % (11.5-14.5); WHITE BLOOD COUNT 6.9 x10^3/uL (4.0-11.0)
[2020-05-25] MEDS ORDERED: HEPARIN for ARTERIAL LINE 1,500 ML ONE (07:38)
[2020-05-25] MEDS ORDERED: IODIXANOL 320 MG/ML 100 ML VIAL. ONE (07:38)
[2020-05-25] MEDS ORDERED: LIDOCAINE 1% PF 2 ML VIAL. ONE (07:38)
[2020-05-25 07:42] LABS: PROTHROMBIN TIME PATIENT 12.6 SEC (11.7-14.0)
[2020-05-25] MEDS ORDERED: LIDOCAINE 1% Multi-Dose 20 ML VIAL. ONE (07:45)
[2020-05-25] MEDS ORDERED: QUET25TA5 PO (07:45)
[2020-05-25] MEDS ORDERED: METO-239 PO (07:45)
[2020-05-25] MEDS ORDERED: OMEP40CA45 PO (07:45)
[2020-05-25] MEDS ORDERED: LEVO75TA5 PO (07:45)
[2020-05-25 07:47] LABS: CALCIUM 8.8 mg/dL (8.5-10.1); CREATININE 1.1 mg/dL (0.7-1.3); GFR 65.1; POTASSIUM 4.3 mmol/L (3.5-5.1)
[2020-05-25] MEDS ORDERED: fentaNYL PF VIAL 100 MCG/2 ML VIAL ONE (08:04)
[2020-05-25] MEDS ORDERED: MIDAZOLAM HCL/PF 2 MG/2 ML VIAL. ONE (08:04)
[2020-05-25] MEDS ORDERED: VERAPAMIL 5 MG/2 ML VIAL. ONE (08:05)
[2020-05-25] MEDS ORDERED: HEPARIN for IV BOLUS 10,000 UNIT/10 ML VIAL. ONE (08:05)
[2020-05-25] MEDS ORDERED: NITROGLYCERIN 200 MCG/2 ML SYRINGE FOR CATH/VASC LAB. ONE (08:05)
[2020-05-25] MEDS ORDERED: fentaNYL PF VIAL 100 MCG/2 ML VIAL IV ONE (08:15)
[2020-05-25] MEDS ORDERED: IODIXANOL 320 MG/ML 100 ML VIAL. IART ONE (08:15)
[2020-05-25] MEDS ORDERED: VERAPAMIL 5 MG/2 ML VIAL. IART ONE (08:15)
[2020-05-25] MEDS ORDERED: HEPARIN for IV BOLUS 10,000 UNIT/10 ML VIAL. IART ONE (08:15)
[2020-05-25] MEDS ORDERED: MIDAZOLAM HCL/PF 2 MG/2 ML VIAL. IV ONE (08:15)
[2020-05-25] MEDS ORDERED: LIDOCAINE 1% Multi-Dose 20 ML VIAL. INJ ONE (08:15)
[2020-05-25] MEDS ORDERED: NITROGLYCERIN 200 MCG/2 ML SYRINGE FOR CATH/VASC LAB. IART ONE (08:15)
[2020-05-25] MEDS ORDERED: CONTRAST GIVEN. MC PRN (08:30)
--- NOTE | 2020-05-25 08:42 | PDOC ---
MODERATE SEDATION ASSESSMENT RISKS/ALTERNATIVES Risks/Alternatives Risks and alternatives of this type of sedation and procedure discussed with: RISK/ALTERNATIVES: Patient H & P ON CHART H & P H & P on chart and reviewed for co-morbid conditions and appropriate labs. H&P ON CHART: Yes STATUS PREG STATUS ASSESSED: N/A MEDS/ALLERGIES REVIEWED Meds/Allergies Reviewed Medications and Allergies including time and route of recently administered narcotics and sedatives. MEDS/ALLERGIES REVIEWED: Yes ASA RATING ASA RATING: II AIRWAY ASSESSMENT Airway Assessment Airway patency, oral function limitations, presence of caps, crowns, dentures, partials, and ability to extend neck assessed. AIRWAY ASSESSMENT: Yes MALLAMPATI SCORE MALLAMPATI SCORE: II PRE-SEDATION ASSESSMENT PRE-SEDATION ASSESSMENT: Yes BENNETT PUGH MD May 25, 2020 08:42
[2020-05-25] MEDS ORDERED: PHENYLEPHRINE in 0.9% NACL PF 1 MG/10 ML SYRINGE. IV ONE (09:04)
--- NOTE | 2020-05-25 10:28 | CARD ---
MR#: [id number] Date of Study: 05/25/2020 Ordering Physician: BENNETT PUGH, Referring Physician: BENNETT PUGH, Tech: HALEY STOKES RTR APPROVED REPORT Technologist: HALEY STOKES RTR Nurse: ORTIZ CANADA RN Procedure(s) performed: MODERATE SEDATION TIME: 40 MINUTES FLUORO TIME: 3.2 MIN DOSE: 42.7 GYCM2 CONTRAST: 33CC VISI LHC, RHC, Coronary angiography HISTORY The patient is a 75 year-old male with a history of : coronary artery disease, hypertension, dyslipid emia. INDICATION The indication(s) include : unstable angina , dyspnea. [facility] Clinical Frailty Scale [facility] Clinical Frailty Scale: Mildly Frail Heart Failure Heart Failure: Yes If Yes, Newly Diagnosed: No If Yes, HF Type: Diastolic If Yes, NYHA Class: Class II PROCEDURE NARRATIVE Clinical information: 75-year-old male with prior known history of coronary disease with PCI to the LAD and circumflex who presents to the catheterization laboratory in the setting of accelerating angina and dyspnea. Risks and benefits were discussed with the patient and he provided appropriate informed consent. Procedure details: The right neck and right wrist were prepped and draped in usual sterile fashion. Under 2% lidocaine local anesthesia with ultrasound and fluoroscopic guidance a 5 Swiss sheath was placed in the right internal jugular vein. Next, a 6 Swiss sheath was placed in the right radial artery via the [place] er technique. Right heart catheterization was performed with a 5 Swiss PA catheter and pressures an d saturations were obtained. Diagnostic coronary angiography was performed with a [address] Left ventricular end-diastolic pressure and a pullback maneuver were performed with a TIG tejas ter. At case completion the right radial sheath was removed and hemostasis was achieved with a radia l band. The right IJ sheath was removed and hemostasis was achieved via manual compression. Findings: Hemodynamics: RA 3 mmHg RV 20/5 PA 22/10 Wedge: 5 LVEDP 3 mmHg No gradient on pullback from the LV to the aorta PA saturation 78% Arterial saturation 98% Cardiac output 5.1 L/min, cardiac index 2.75 Aorta: 98/50 mmHg Coronary angiography: Left main is a moderate caliber vessel with a diffuse mid to distal body 80% stenosis LAD is a moderate caliber vessel with a patent proximal stent. The apex has a 60% stenosis in a smal l caliber portion of the vessel. Ramus is a small caliber vessel with an ostial 80% stenosis D1 is a moderate caliber vessel with a proximal 50% stenosis Left circumflex is a moderate caliber vessel with mild diffuse irregularities up to 30% and a patent proximal stent RCA is a large caliber dominant vessel with a focal mid 95% stenosis which is heavily calcified. RPDA and RPL are moderate caliber vessels with mild luminal irregularities No acute complications. Conclusion 1. Normal biventricular filling pressures 2. No pulmonary hypertension 3. Normal cardiac output 4. 2 of 2 stents patent in the LAD and circumflex 5. Severe left main and RCA disease Recommendations 1. Although the patient's left main and RCA lesions are amenable to PCI, given adequate targets and mild proximal LAD bridging would first recommend recommend evaluation for CABG. If patient is deemed to be high risk due to prior history of carotid vascular disease, neuropathy etc. could always consi marino high risk PCI. Patient wishes to be transferred to [facility]. Signed by : Bennett Pugh, Electronically Approved : 05/25/2020 10:28:13
--- NOTE | 2020-05-25 13:04 | NUR ---
SS following for discharge planning. SS reviewed pt chart and discussed with pt RN. SS received phone contact from engineering lab technician and notification from Cardiology reporting that pt needs transfer to [facility] for CABG. COVID19 negative. SS contacted [facility] transfer center, ; fax [phone], and made request for transfer. SS faxed clinical to [facility] transfer center as requested. Request for radiology, 2188, to cloud images made. Request to Cardiology for reports and CD's made for transfer. Packet and transfer form placed on chart. SS will continue to follow for discharge planning.
--- NOTE | 2020-05-25 14:47 | NUR ---
SS following up with discharge planning. Pt accepted at [facility]. Accepting physician, Dr. Underwood. Report# [phone]. Room#2340. Pt will discharge today and go to [facility] via [facility] ambulance. Pt, pt's RN, and pt's spouse notified. Packet, transfer form, and ambulance form on the chart.
--- NOTE | 2020-05-25 15:24 | NUR ---
Julissa DERAS spoke with Deb DERAS at [facility] and gave report on patient, patient being transported by [facility] to room 2340. Vital signs stable and patient and his are awaiting ambulance staff.
--- NOTE | 2020-05-25 17:08 | NUR ---
ARABELLA here to tack picker patient, VSS, pt alert and oriented x 3, pts valuable were taken home by . will follow ambulance. Spoke to Cris at [facility] to alert that pt was leaving. given info on [facility] visitor policy. MARJAN DERAS
== END 2020-05-25 17:12 | disposition short-term general hospital (02) ==
LOC: CCL 06:58
PROVIDERS: ATTEND Internal Medicine Cardiovascular Disease
DX: I25.110 Atherosclerotic heart disease of native coronary artery with unstable angina pectoris (principal); R06.00 Dyspnea, unspecified; I10 Essential (primary) hypertension; K21.9 Gastro-esophageal reflux disease without esophagitis; E78.00 Pure hypercholesterolemia, unspecified; E66.9 Obesity, unspecified; G47.30 Sleep apnea, unspecified; M19.90 Unspecified osteoarthritis, unspecified site; N40.0 Benign prostatic hyperplasia without lower urinary tract symptoms; F32.9 Major depressive disorder, single episode, unspecified; Z90.49 Acquired absence of other specified parts of digestive tract; Z98.890 Other specified postprocedural states; Z79.899 Other long term (current) drug therapy; Z79.82 Long term (current) use of aspirin; Z72.89 Other problems related to lifestyle; Z87.891 Personal history of nicotine dependence; Z68.27 Body mass index [BMI] 27.0-27.9, adult
CPT/HCPCS: 36415; 76937; 80048; 85027; 85610; 93460; 99152; 99153; C1769; C1773; C1892; J1644; J2250; J3010; J3490; Q9967

== ENCOUNTER 2020-07-24 18:06 | Emergency (ER) | payer MEDICARE, OTHER ==
[~2020-07-24] VITALS: Ht 167.6 cm; Wt 74.0 kg
[~2020-07-24 18:06] MED LIST changes: +LEVO75TA5 PO; -MECL12.573 PO; +MECL12.574 PO; +QUET25TA5 PO
--- NOTE | 2020-07-24 18:22 | PHYS DOC ---
Past Medical History Past Medical History: CAD, COPD, CVA, Dementia, High Cholesterol, Heart D isease, Hypertension, MO Past Surgical History: Appendectomy, Cholecystectomy, Hip Replacement, Other Additional Past Surgical Histo: Back; cardiac stents Smoking Status: Former Smoker Alcohol Use: None Drug Use: None General Adult EDM: Chief Complaint: CHEST PAIN HPI: HPI: Patient is a 75-year-old male here with via POV for chest pain. Reports this is acute on chronic, has known history of CAD and status post CABG performed May 2020. Reports having chest pain that comes and goes ever since surgery, has been attending cardiac rehab and last one today. Reports having episodes of deep left breast burning pain that does not radiate and is 5 out of 10 in severity. Reports most recent episode started 45 minutes ago approximately 1 hour after eating pizza and did not respond when he took x2 Aleve prompting him to come in for evaluation. Nothing known makes better or worse. Patient takes 81 mg aspirin daily, no other blood thinner s/anticoagulants. Patient denies fever, syncope, ripping or tearing chest pain, shortness of breath, cough, abdominal pain, urinary symptoms, no COVID-19 contact. Patient and confirms his DO NOT RESUSCITATE status Review of Systems: Review of Systems: Fourteen body systems of review of systems have been reviewed. See HPI for pertinent positives and negative responses, other morfin all other systems are negative, non-pertinent or non-contributory Heart Score: HEART Score for Chest Pain: HEART Score for Chest Pain Response (Comments) Value History Slighlty/Non-Suspicious 0 ECG Normal 0 Age > 65 2 Risk Factors >3 Risk Factors or Hx CAD 2 Troponin < Normal Limit 0 Total 4 Risk Factors: Risk Factors: DM, Current or recent (<one month) smoker, HTN, HLP, family history of CAD, obesity. Risk Scores: Score 0 - 3: 2.5% MACE over next 6 weeks - Discharge Home Score 4 - 6: 20.3% MACE over next 6 weeks - Admit for Clinical Observation Score 7 - 10: 72.7% MACE over next 6 weeks - Early Invasive Strategies Allergies: Allergies: Allergies Coded Allergies Type Severity Reaction Last Updated Verified No Known Drug Allergies 03/20/17 No Physical Exam: PE: Constitutional: Well developed, well nourished, no acute distress, non-toxic appearance. HENT: Normocephalic, atraumatic, bilateral external ears normal, oropharynx moist, no oral exudates, nose normal. Eyes: PERRLA, EOMI, conjunctiva normal, no discharge. Neck: Normal range of motion, no tenderness, supple, no stridor. Cardiovascular: Heart rate regular, sinus rhythm, no murmurs rubs or gallops Lungs & Thorax: Bilateral breath sounds clear to auscultation Abdomen: Bowel sounds normal, soft, no tenderness, no masses, no pulsatile masses. Nonsurgical abdomen, no peritoneal signs Skin: Warm, dry, no erythema, no rash. Back: No tenderness, no CVA tenderness. Extremities: No tenderness, no cyanosis, no clubbing, ROM intact, no edema. Neurologic: Alert and oriented X 3, grossly normal motor & sensory function, no focal deficits noted. Psychologic: Affect normal, judgement normal, mood normal. Current Patient Data: Labs: Laboratory Tests Test 07/24/20 18:34 White Blood Count 8.3 x10^3/uL Red Blood Count 4.37 x10^6/uL Hemoglobin 13.8 g/dL Hematocrit 40.8 % Mean Corpuscular Volume 93 fL Mean Corpuscular Hemoglobin 31 pg Mean Corpuscular Hemoglobin Concent 34 g/dL Red Cell Distribution Width 13.7 % Platelet Count 181 x10^3/uL Neutrophils (%) (Auto) 68 % Lymphocytes (%) (Auto) 17 % Monocytes (%) (Auto) 11 % Eosinophils (%) (Auto) 3 % Basophils (%) (Auto) 1 % Neutrophils # (Auto) 5.6 x10^3/uL Lymphocytes # (Auto) 1.4 x10^3/uL Monocytes # (Auto) 0.9 x10^3/uL Eosinophils # (Auto) 0.3 x10^3/uL Basophils # (Auto) 0.1 x10^3/uL Sodium Level 143 mmol/L Potassium Level 3.4 mmol/L Chloride Level 105 mmol/L Carbon Dioxide Level 26 mmol/L Anion Gap 12 Blood Urea Nitrogen 19 mg/dL Creatinine 1.2 mg/dL Estimated GFR (Cockcroft-Gault) 58.9 Glucose Level 101 mg/dL Calcium Level 9.3 mg/dL Magnesium Level 2.2 mg/dL Troponin I Quantitative < 0.017 ng/mL TA-[id number]-Type Natriuretic Peptide 566 pg/mL Current Medications Medications (Trade) Dose Ordered Sig/Deidra Route PRN Reason Start Time Stop Time Status Last Admin Dose Admin Aspirin (Aspirin Chewable) 162 mg 1X ONCE PO 07/24/20 18:30 07/24/20 18:31 DC 07/24/20 18:42 Nitroglycerin (Nitrostat) 0.4 mg PRN Q5MIN PRN SL CP RATING > 1/10 07/24/20 18:30 07/25/20 18:29 07/24/20 19:23 Vital Signs: Vital Signs Date Time Temp Pulse Resp B/P (MAP) Pulse Ox O2 Delivery O2 Flow Rate FiO2 07/24/20 18:16 96.4 67 16 150/69 (96) 98 Room Air 96.4 EKG: EKG: EKG ordered and interpreted by myself at 1818 hrs. as sinus rhythm at 68 bpm, prolonged NH at 226, prolonged QRS at 124, prolonged QTC at 486 otherwise unremarkable intervals, left axis deviation, T wave inversions noted in leads aVR, V1, V2 and V3 without any other obvious ischemic findings, no STEMI Prior EKG obtained 11/03/2017 obtained and compared to EKG ordered today and grossly unchanged Radiology/Procedures: Radiology/Procedures: EXAM: CHEST 1 VIEW History: Chest pain COMPARISON: 08/13/2018 TECHNIQUE: Single portable radiograph of the chest FINDINGS: The cardiac silhouette is unremarkable. The lungs are clear bilaterally. The costophrenic sulci are clear and well demarcated. IMPRESSION: No radiographic evidence of an acute cardiopulmonary process. Electronically signed by: Dedrick Sullivan MD (07/24/2020 7:05 PM) [id number] Course & Med Decision Making: Course & Med Decision Making Discussed with the patient all findings and diagnostic testing. I discussed most likely diagnosis of true cardiac chest pain versus atypical chest pain from GERD or other cause. Patient much improved after x3 sublingual nitro given in ER. I recommended admission for cardiac observation given patient's extensive comorbidities and history of cardiac disease but patient declined. Reports he has good access to waistband setter in outpatient setting and will be able to discuss ER visit this evening with cardiac nursing staff at cardiac rehab this upcoming Monday. Strict return precautions were also discussed at length with good understanding by patient. Patient voiced understanding and agreement with the plan. Patient knows to come back for repeat evaluation if concerning signs or symptoms present prior to outpatient follow-up. Hemodynamically stable, ambulatory and well-appearing at time of disposition. Ralf Disclaimer: Ralf Disclaimer: This electronic medical record was generated, in whole or in part, using a voice recognition dictation system. Departure Departure Impression: Primary Impression: Chest pain, unspecified Disposition: 01 DC HOME SELF CARE/HOMELESS Condition: IMPROVED Referrals: SIMON SILVA MD (PCP) Patient Instructions: Chest Pain (Nonspecific) Additional Instructions: You were seen for chest pain. Your workup did not show any acute abnormalities today, but does not definitively exclude true cardiac chest pain as discussed at length. I discussed and recommended role of cardiac observation but you declined. As such, I advise you to call your primary care physician and waistband setter after ER departure to review ER visit this evening. It is likely you were suffering from GERD based on history of presenting illness but given your comorbidities, you are high risk for actual adverse cardiac events and so outpatient follow-up is paramount. You should return to the ED if you develop worsening chest pain, shortness of breath, fever, abnormal sweating, leg swelling, or any other new or concerning symptoms. It was a pleasure to take care of you and I wish you the best going forward ED SALINAS DO Jul 24, 2020 18:22
[2020-07-24] MEDS ORDERED: ASPIRIN CHEWABLE 81 MG TABLET. PO ONE (18:30)
[2020-07-24] MEDS: NITROGLYCERIN SUBLINGUAL 0.4 MG BOTTLE OF 25. SL PRN ×3 (18:43→19:23)
[2020-07-24 18:53] LABS: BASO # 0.1 x10^3/uL (0.0-0.2); BASO % 1 % (0-3); EOS # 0.3 x10^3/uL (0.0-0.7); EOS % 3 % (0-3); HEMATOCRIT 40.8 % (39.0-53.0); HEMOGLOBIN 13.8 g/dL (13.0-17.5); LYMPH # 1.4 x10^3/uL (1.0-4.8); LYMPH % 17 % (24-48); MEAN CORPUSCULAR HEMOGLOBIN 31 pg (25-35); MEAN CORPUSCULAR HGB CONC 34 g/dL (31-37); MEAN CORPUSCULAR VOLUME 93 fL (79-100); MONO # 0.9 x10^3/uL (0.0-1.1); MONO % 11 % (0-9); NEUT # 5.6 x10^3/uL (1.8-7.7); NEUT % 68 % (31-73); PLATELET COUNT 181 x10^3/uL (140-400); RED BLOOD COUNT 4.37 x10^6/uL (4.30-5.70); RED CELL DISTRIBUTION WIDTH 13.7 % (11.5-14.5); WHITE BLOOD COUNT 8.3 x10^3/uL (4.0-11.0)
[2020-07-24 19:07] LABS: CALCIUM 9.3 mg/dL (8.5-10.1); CREATININE 1.2 mg/dL (0.7-1.3); GFR 58.9; POTASSIUM 3.4 mmol/L (3.5-5.1)
--- NOTE | 2020-07-24 19:07 | RAD ---
EXAM: CHEST 1 VIEW History: Chest pain COMPARISON: 08/13/2018 TECHNIQUE: Single portable radiograph of the chest FINDINGS: The cardiac silhouette is unremarkable. The lungs are clear bilaterally. The costophrenic sulci are clear and well demarcated. IMPRESSION: No radiographic evidence of an acute cardiopulmonary process. Electronically signed by: Dedrick Sullivan MD (07/24/2020 7:05 PM) [id number]
[2020-07-24 19:08] LABS: MAGNESIUM 2.2 mg/dL (1.8-2.4)
[2020-07-24 19:23] VITALS: BP 125/60
--- NOTE | 2020-07-25 18:31 | EKG ---
[facility] [address] [place] [address] Test Date: 2020-07-24 Test Time: 18:16:03 Pat Name: MABEL JANSEN Department: Room: Gender: M Siderographist: : 1945 Requested By: ED SALINAS Order Number: [id number] Reading MD: Measurements Intervals [place] Rate: 68 P: 62 NH: 226 QRS: 21 QRSD: 124 T: 48 QT: 452 QTc: 486 Interpretive Statements SINUS RHYTHM PROLONGED NH INTERVAL RVH WITH REPOLARIZATION ABNORMALITY ABNORMAL ECG RI6.02 No previous ECG available for comparison
== END 2020-07-24 19:51 | disposition home or self-care (01) ==
LOC: ER 18:06
DX: R07.89 Other chest pain (principal); J44.9 Chronic obstructive pulmonary disease, unspecified; F03.90 Unspecified dementia, unspecified severity, without behavioral disturbance, psychotic disturbance, mood disturbance, and anxiety; I25.10 Atherosclerotic heart disease of native coronary artery without angina pectoris; Z86.73 Personal history of transient ischemic attack (TIA), and cerebral infarction without residual deficits; I11.9 Hypertensive heart disease without heart failure; E78.00 Pure hypercholesterolemia, unspecified; I25.2 Old myocardial infarction; Z87.891 Personal history of nicotine dependence; Z95.5 Presence of coronary angioplasty implant and graft; Z90.89 Acquired absence of other organs; Z90.49 Acquired absence of other specified parts of digestive tract
CPT/HCPCS: 36415; 71045; 80048; 83735; 83880; 84484; 85025; 93005; 99285-25

== ENCOUNTER → 2020-09-03 | Outpatient (CLI) | payer MEDICARE, OTHER ==
[~2020-09-03] MED LIST changes: -MECL12.574 PO; +MECL12.582 PO; +METH-562 PO; -METH750T2 PO; +VITA-47 PO; -VITA400C6 PO
[2020-09-03 08:49] LABS: BASO # 0.1 x10^3/uL (0.0-0.2); BASO % 1 % (0-3); EOS # 0.2 x10^3/uL (0.0-0.7); EOS % 3 % (0-3); HEMATOCRIT 43.7 % (39.0-53.0); HEMOGLOBIN 14.4 g/dL (13.0-17.5); LYMPH # 1.3 x10^3/uL (1.0-4.8); LYMPH % 21 % (24-48); MEAN CORPUSCULAR HEMOGLOBIN 30 pg (25-35); MEAN CORPUSCULAR HGB CONC 33 g/dL (31-37); MEAN CORPUSCULAR VOLUME 91 fL (79-100); MONO # 0.6 x10^3/uL (0.0-1.1); MONO % 10 % (0-9); NEUT % 65 % (31-73); PLATELET COUNT 199 x10^3/uL (140-400); RED BLOOD COUNT 4.81 x10^6/uL (4.30-5.70); RED CELL DISTRIBUTION WIDTH 13.4 % (11.5-14.5); WHITE BLOOD COUNT 6.1 x10^3/uL (4.0-11.0)
[2020-09-03 09:42] LABS: ALBUMIN 3.7 g/dL (3.4-5.0); ALBUMIN/GLOBULIN RATIO 1.1 (1.0-1.7); CALCIUM 8.7 mg/dL (8.5-10.1); CREATININE 1.2 mg/dL (0.7-1.3); GFR 58.9; POTASSIUM 4.5 mmol/L (3.5-5.1); TOTAL BILIRUBIN 0.5 mg/dL (0.2-1.0); TOTAL PROTEIN 7.2 g/dL (6.4-8.2)
== END ==
LOC: LAB 08:18
PROVIDERS: ATTEND Internal Medicine Cardiovascular Disease
DX: I25.10 Atherosclerotic heart disease of native coronary artery without angina pectoris (principal)
CPT/HCPCS: 36415; 80053; 80061; 83721; 85025